=== PATIENT | female | born 2000 | race Two or more races ===

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

== ENCOUNTER 2020-12-19 06:03 | Emergency (ER) | payer OTHER ==
[2020-12-19 06:09] VITALS: BP 116/69; PULSE 72; RESP 20; TEMP 99.1
--- NOTE | 2020-12-19 06:21 | ED ---
Skin/Abscess/FB HPI - General Chief complaint: Skin/Abscess/Foreign Body Stated complaint: Allergic Reaction Time Seen by Provider: 12/19/20 06:09 Source: patient, family Mode of arrival: ambulatory Limitations: no limitations - History of Present Illness Initial comments: 20yo female prsenting for cc of bee sting. pt states she was stung at 10AM yesterday by a bee (she brought in what appears to be a yellow jacket). pt states that she has had pain since. she states she never noted a stinger. pt denies redness. pt denies rash, diarrhea, abdominal pain, tongue/lip swelling, wheezing. pt has no additional complaints aside from pain at the side of being stung, which is the right bottom foot. patient has no additional complaitns. appears well nontoxic on arrival. - Related Data Previous Rx's Medication Instructions Recorded diphenhydrAMINE & Zinc Cream 1 applic TOPICAL BID 3 Days #15 gm 12/19/20 [Benadryl Cream] Allergies Allergy/AdvReac Type Severity Reaction Status Date / Time No Known Allergies Allergy Verified 12/19/20 06:09 Review of Systems ROS Statement: Those systems with pertinent positive or pertinent negative responses have been documented in the HPI. ROS Other: All systems not noted in ROS Statement are negative. Past Medical History Past Medical History: No Reported History History of Any Multi-Drug Resistant Organisms: None Reported Past Surgical History: No Surgical Hx Reported Past Psychological History: No Psychological Hx Reported Smoking Status: Never smoker Past Alcohol Use History: None Reported Past Drug Use History: None Reported General Exam - General Exam Comments Initial Comments: General: The patient is awake and alert, in no distress Eye: +3 mm pupils are equal, round and reactive to light, extra-ocular movements are intact. No nystagmus. There is normal conjunctiva bilaterally. No signs of icterus. Ears, nose, mouth and throat: There are moist mucous membranes and no oral lesions.No lip or tongue swelling. Neck: The neck is supple, there is no tenderness or JVD. Cardiovascular: There is a regular rate and rhythm. No murmur, rub or gallop is appreciated. Respiratory: Lungs are clear to auscultation, respirations are non-labored, breath sounds are equal. No wheezes, stridor, rales, or rhonchi. Neurological: A&O x 3. CN II-XII intact grossly, There are no obvious motor or sensory deficits. Coordination appears grossly intact. Speech is normal. Skin: Skin is warm and dry and no rashes or lesions are noted- there is pa in to palpation pad of right foot but there is no redness, no stinger/foreign body noted. there is no rashes noted. Psychiatric: Cooperative. Limitations: no limitations Course Vital Signs 12/19/20 06:04 Temperature 99.1 F Pulse Rate 72 Respiratory 20 Rate Blood Pressure 116/69 O2 Sat by Pulse 98 Oximetry Medical Decision Making - Medical Decision Making pain at site of being stung. no findings on exam aside from pain. no apparent infection/reaction. recommend applying ice, bendaryl cream and return for any increasing redness/swelling. Disposition Clinical Impression: Bee sting Disposition: HOME SELF-CARE Condition: Good Instructions (If sedation given, give patient instructions): Insect Bite or Sting (ED) Additional Instructions: Please use medication as discussed. Please follow-up with family doctor in the next 2 days. Please return to emergency room if the symptoms increase or worsen or for any other concerns. Prescriptions: diphenhydrAMINE & Zinc Cream [Benadryl Cream] 1 applic TOPICAL BID 3 Days #15 gm Is patient prescribed a controlled substance at d/c from ED?: No Referrals: Husam Roman MD [Primary Care Provider] - 1-2 days Time of Disposition: 06:21
== END 2020-12-19 06:48 | disposition home or self-care (01) ==
LOC: EC 06:03
DX: T63.441A Toxic effect of venom of bees, accidental (unintentional), initial encounter (principal)
CPT/HCPCS: 99282

== ENCOUNTER → 2021-01-10 | Outpatient (CLI) | payer OTHER ==
[2021-01-10 11:34] LABS: Appearance,Urine Cloudy (Clear); Bilirubin,Urine Negative (Negative); Blood,Urine Negative (Negative); Color,Urine Yellow; Glucose,Urine (UA) Negative (Negative); Ketones,Urine Negative (Negative); Leukocyte Esterase,Urine Trace (Negative); Mucus,Urine Rare /hpf; Nitrite,Urine Negative (Negative); Protein,Urine Negative (Negative); RBC,Urine 1 /hpf (0-5); Specific Gravity,Urine 1.018 (1.001-1.035); Squamous Epithelial Cell,Urine 3 /hpf (0-4); Urobilinogen,Urine <2.0 mg/dL (<2.0); WBC,Urine 2 /hpf (0-5)
--- NOTE | 2021-01-10 12:27 | XR ---
EXAMINATION TYPE: XR chest 2V DATE OF EXAM: 01/10/2021 COMPARISON: None HISTORY: 20-year-old female shortness of breath, right axillary and rib pain. TECHNIQUE: Frontal and lateral views FINDINGS: The cardiomediastinal silhouette, aorta, and pulmonary vasculature are within normal limits. Lungs an d pleural spaces are clear. IMPRESSION: No acute cardiopulmonary process.
[2021-01-10 16:29] LABS: Basophils # (A) 0.05 X 10*3/uL (0.00-0.10); Eosinophils # (A) 0.12 X 10*3/uL (0.04-0.35); Eosinophils % (A) 2.3 %; HCT 42.4 % (37.2-46.3); HGB 14.1 g/dL (12.0-15.0); Lymphocytes # (A) 2.03 X 10*3/uL (0.90-5.00); Lymphocytes % (A) 39.1 %; MCH 28.9 pg (27.0-32.0); MCHC 33.3 g/dL (32.0-37.0); MCV 86.9 fL (80.0-97.0); Mean Platelet Volume 11.5 fL (9.5-12.2); Monocytes # (A) 0.37 X 10*3/uL (0.20-1.00); Monocytes % (A) 7.1 %; Neutrophils # (A) 2.61 X 10*3/uL (1.80-7.70); Neutrophils % (A) 50.3 %; Platelet Count 275 X 10*3/uL (140-440); RBC 4.88 X 10*6/uL (4.10-5.20); RDW 11.9 % (11.5-14.5); WBC 5.19 X 10*3/uL (4.50-10.00)
[2021-01-10 16:48] LABS: Ferritin 22.7 ng/mL (10.0-291.0)
[2021-01-10 16:58] LABS: Thyroid Peroxidase Antibodies <28.0 U/mL (0.0-60.0)
[2021-01-10 17:54] LABS: % Iron Saturation 25.59 (12.00-45.00); ALT 10 U/L (8-44); AST 19 U/L (13-35); Albumin/Globulin Ratio 1.88 (1.60-3.17); Alkaline Phosphatase 65 U/L (41-126); C Reactive Protein <0.4 mg/dL (0.0-0.8); Calcium 9.8 mg/dL (8.7-10.3); Carbon Dioxide 29.5 mmol/L (21.6-31.8); Chloride 103 mmol/L (96-109); Chol/HDL Ratio 3.21; Cholesterol 186 mg/dL (0-200); Creatine Kinase 79 U/L (26-186); Globulin 2.5 g/dL (1.6-3.3); Glucose 90 mg/dL (70-110); Iron 87 ug/dL (50-170); LDL Cholesterol,Calculated 116.6 mg/dL (0.0-131.0); Magnesium 2.1 mg/dL (1.5-2.4); Non-African American GFR(CKD) 106.1 (60.0-200.0); Phosphorus 4.7 mg/dL (2.4-5.1); Potassium 4.2 mmol/L (3.5-5.5); Sodium 141 mmol/L (135-145); Total Bilirubin 0.6 mg/dL (0.3-1.2); Total Iron Binding Capacity 340 ug/dL (228-460); Total Protein 7.2 g/dL (6.2-8.2)
[2021-01-10 20:04] LABS: Erythrocyte Sedimentation Rate 8 mm/Hr (0-20)
[2021-01-10 20:58] LABS: Folate, Serum 17.2 ng/mL
== END | disposition home or self-care (01) ==
LOC: LABWHC1 11:03
PROVIDERS: ATTEND Internal Medicine
DX: Z00.00 Encounter for general adult medical examination without abnormal findings (principal); E78.5 Hyperlipidemia, unspecified; E05.90 Thyrotoxicosis, unspecified without thyrotoxic crisis or storm; D64.9 Anemia, unspecified; M79.621 Pain in right upper arm; R07.81 Pleurodynia
CPT/HCPCS: 36415; 71046; 80053; 80061; 81001; 82306; 82550; 82607; 82728; 82746; 83540; 83550; 83735; 84100; 84439; 84443; 84466; 84481; 85025; 85652; 86140; 86376; 86800

== ENCOUNTER 2021-06-28 18:19 | Emergency (ER) | payer OTHER ==
[2021-06-28 19:47] VITALS: BP 106/76; PULSE 106; RESP 18; TEMP 101.6
[2021-06-28] MEDS ORDERED: ACETAMINOPHEN TAB 500 MG TAB PO STA (19:47)
--- NOTE | 2021-06-28 19:49 | ED ---
URI HPI - General Stated Complaint: coughing/dizzy Time Seen by Provider: 06/28/21 19:45 - History of Present Illness Initial Comments: Seen for ATP: 20 year-old female presents for cough, chest tightness, and headache. Symptoms started today. States that she also is having some dizziness. Reports fever, body aches, chills. Denies chance of . Has not been vaccinated for COVID or Flu. Denies nausea or vomiting. Has been eating and drinking well. - Related Data Previous Rx's Medication Instructions Recorded diphenhydrAMINE & Zinc Cream 1 applic TOPICAL BID 3 Days #15 gm 12/19/20 [Benadryl Cream] Ibuprofen [Motrin] 600 mg PO Q8HR PRN #30 tab 06/28/21 guaiFENesin-DM 600/30MG [Mucinex 1 each PO Q12HR #10 tab 06/28/21 Dm] Allergies Allergy/AdvReac Type Severity Reaction Status Date / Time No Known Allergies Allergy Verified 06/28/21 19:47 Review of Systems ROS Statement: Those systems with pertinent positive or pertinent negative responses have been documented in the HPI. ROS Other: All systems not noted in ROS Statement are negative. Past Medical History Past Medical History: No Reported History History of Any Multi-Drug Resistant Organisms: None Reported Past Surgical History: No Surgical Hx Reported Past Psychological History: No Psychological Hx Reported Smoking Status: Never smoker Past Alcohol Use History: None Reported Past Drug Use History: None Reported General Exam General appearance: alert, in no apparent distress ENT exam: Present: normal exam, normal oropharynx, mucous membranes moist Respiratory exam: Present: normal lung sounds bilaterally. Absent: respiratory distress, wheezes, rales, rhonchi, stridor Cardiovascular Exam: Present: regular rate, normal rhythm, normal heart sounds. Absent: systolic murmur, diastolic murmur, rubs, gallop, clicks GI/Abdominal exam: Present: soft, normal bowel sounds. Absent: distended, tenderness, guarding, rebound, rigid Neurological exam: Present: alert, oriented X3, CN II-XII intact Psychiatric exam: Present: normal affect, normal mood Skin exam: Present: warm, dry, intact, normal color. Absent: rash Course Vital Signs 06/28/21 06/28/21 19:44 21:05 Temperature 101.6 F H Pulse Rate 106 H Respiratory 18 18 Rate Blood Pressure 106/76 O2 Sat by Pulse 97 Oximetry Medical Decision Making - Medical Decision Making 20-year-old female patient presented for evaluation of cough, fever, body aches. Physical examination revealed clear equal lung sounds. She is in no respiratory distress. She was febrile upon arrival. Chest x-ray was negative. She did test positive for COVID-19. She is given prescriptions for ibuprofen and Mucinex DM. She will be discharged with instructions to increase fluids, rest. Follow-up with her primary care physician for recheck in 1-2 days. Return parameters were discussed in detail. She verbalizes understanding and agrees with this plan. My attending is Dr. Guzman. - Lab Data Lab Results 06/28/21 Range/Units 19:49 Coronavirus (PCR) Detected A (Not Detectd) - Radiology Data Radiology results: report reviewed, image reviewed Two-view x-ray of the chest is obtained. Report was reviewed in its entirety. Impression by Dr. Rome shows normal chest. No change. Disposition Clinical Impression: COVID-19 Disposition: HOME SELF-CARE Condition: Good Instructions (If sedation given, give patient instructions): Coronavirus Disease 2019 (COVID-19) Additional Instructions: Tips to help you feel better: -Maintain adequate fluid intake - especially water. -Rest, you are healing your body will require extra sleep. -Eat even if you do not feel like it - broth, jello, toast are fine if you cannot eat full meals. -Take tylenol and motrin alternating (if you have no allergies or have not been instructed to avoid these medications) to help with body aches and fevers. -Obtain over the counter vitamin C, zinc, and vitamin D3. -Take medications as prescribed. Follow-up with your primary care physician for recheck in 1-2 days. Return for any new, worsening, or concerning symptoms. Prescriptions: Ibuprofen [Motrin] 600 mg PO Q8HR PRN #30 tab PRN Reason: Pain guaiFENesin-DM 600/30MG [Mucinex Dm] 1 each PO Q12HR #10 tab Is patient prescribed a controlled substance at d/c from ED?: No Referrals: Husam Roman MD [Primary Care Provider] - 1-2 days Time of Disposition: 21:03
--- NOTE | 2021-06-28 20:06 | XR ---
EXAMINATION TYPE: XR chest 2V DATE OF EXAM: 06/28/2021 COMPARISON: 01/10/2021 HISTORY: Chest pain TECHNIQUE: FINDINGS: Heart and mediastinum are normal. Lungs are clear. Diaphragm is normal. Bony thorax is inta ct. IMPRESSION: Normal chest. No change.
== END 2021-06-28 21:07 | disposition home or self-care (01) ==
LOC: EC 18:19
DX: U07.1 COVID-19 (principal)
CPT/HCPCS: 71046; 87635; 99285

== ENCOUNTER 2021-07-11 17:31 | Emergency (ER) | payer SELFPAY ==
[2021-07-11 18:19] VITALS: BP 121/81; PULSE 78; RESP 18; TEMP 97.3
--- NOTE | 2021-07-11 20:04 | ED ---
General Adult HPI - General Chief complaint: Weakness Stated complaint: Covid test Source: patient, EMS Mode of arrival: EMS - History of Present Illness Initial comments: Patient is a pleasant 20yo F who has had 14days of COVID 19 symptoms, tested +14 days ago reported she came to the ER today feeling better but wanted repeat testing because she's been grunting from her family - Related Data Previous Rx's Medication Instructions Recorded diphenhydrAMINE & Zinc Cream 1 applic TOPICAL BID 3 Days #15 gm 12/19/20 [Benadryl Cream] Ibuprofen [Motrin] 600 mg PO Q8HR PRN #30 tab 06/28/21 guaiFENesin-DM 600/30MG [Mucinex 1 each PO Q12HR #10 tab 06/28/21 Dm] Allergies Allergy/AdvReac Type Severity Reaction Status Date / Time No Known Allergies Allergy Verified 06/28/21 19:47 Review of Systems ROS Statement: Those systems with pertinent positive or pertinent negative responses have been documented in the HPI. ROS Other: All systems not noted in ROS Statement are negative. Past Medical History Past Medical History: No Reported History History of Any Multi-Drug Resistant Organisms: None Reported Past Surgical History: No Surgical Hx Reported Past Psychological History: No Psychological Hx Reported Smoking Status: Never smoker Past Alcohol Use History: None Reported Past Drug Use History: None Reported General Exam - General Exam Comments Initial Comments: Physical Exam GENERAL: Patient is well-developed and well-nourished. Patient is nontoxic and well-hydrated and is in no distress. HENT: Normocephalic, Atraumatic. EYES: PERRL, EOMI PULMONARY: Unlabored respirations. CARDIOVASCULAR: RRR Warm and well perfused extremities ABDOMEN: Non-distended SKIN: No rashes or bruising : Deferred NEUROLOGIC: Alert and oriented Normal speech Normal gait MUSCULOSKELETAL: Moving all extremities with no apparent injury Course Vital Signs 07/11/21 18:15 Temperature 97.3 F L Pulse Rate 78 Respiratory 18 Rate Blood Pressure 121/81 O2 Sat by Pulse 100 Oximetry Medical Decision Making - Medical Decision Making She was seen and evaluated history is obtained from patient, she will 14 days of COVID-19, symptoms are improving she is feeling much better now wanted a repeat test due to currently quarantining. Repeat test was ordered through triage. It is still positive. I advised the patient that she states she is to return in 2 weeks out from onset of symptoms she is asymptomatic now she can in her quarantine. No need for additional testing - Lab Data Lab Results 07/11/21 Range/Units 18:16 Coronavirus (PCR) Detected A (Not Detectd) Disposition Clinical Impression: COVID-19 Disposition: HOME SELF-CARE Condition: Stable Instructions (If sedation given, give patient instructions): Coronavirus Disease 2019 (COVID-19) Is patient prescribed a controlled substance at d/c from ED?: No Referrals: Husam Roman MD [Primary Care Provider] - 1-2 days
== END 2021-07-11 20:10 | disposition home or self-care (01) ==
LOC: EC 17:31
DX: U07.1 COVID-19 (principal)
CPT/HCPCS: 87635; 99283

== ENCOUNTER 2021-08-06 13:01 | Emergency (ER) | payer OTHER ==
[2021-08-06 13:15] VITALS: BP 94/68; RESP 16; TEMP 97.9
[2021-08-06 13:28] VITALS: PULSE 78
--- NOTE | 2021-08-06 14:54 | ED ---
General Adult HPI - General Chief complaint: Weakness Stated complaint: Dizziness, tired, weak Time Seen by Provider: 08/06/21 13:17 Source: patient, RN notes reviewed Mode of arrival: ambulatory Limitations: no limitations - History of Present Illness Initial comments: 20-year-old female presents emergency Department chief complaint of not feeling well. Patient has been recently exposed to COVID-19. Patient did have some palpitations few days ago so she thought she should be tested. Patient has had no major cough cold like symptoms otherwise denies any chest pain headache blurred vision. Weakness. - Related Data Home Medications Medication Instructions Recorded Confirmed Ascorbic Acid [Vitamin C] 500 mg PO DAILY 08/06/21 08/06/21 Calcium Carbonate [Calcium] 600 mg PO DAILY 08/06/21 08/06/21 Cholecalciferol [Vitamin D3 (25 25 mcg PO DAILY 08/06/21 08/06/21 Mcg = 1000 Iu)] Allergies Allergy/AdvReac Type Severity Reaction Status Date / Time No Known Allergies Allergy Verified 08/06/21 14:32 Review of Systems ROS Statement: Those systems with pertinent positive or pertinent negative responses have been documented in the HPI. ROS Other: All systems not noted in ROS Statement are negative. Past Medical History Past Medical History: No Reported History History of Any Multi-Drug Resistant Organisms: None Reported Past Surgical History: No Surgical Hx Reported Past Psychological History: No Psychological Hx Reported Smoking Status: Never smoker Past Alcohol Use History: None Reported Past Drug Use History: None Reported General Exam Limitations: no limitations General appearance: alert, in no apparent distress Head exam: Present: atraumatic, normocephalic, normal inspection Eye exam: Present: normal appearance, PERRL, EOMI. Absent: scleral icterus, conjunctival injection, periorbital swelling ENT exam: Present: normal exam, normal oropharynx, mucous membranes moist Neck exam: Present: normal inspection, full ROM. Absent: tenderness, meningismus, lymphadenopathy Respiratory exam: Present: normal lung sounds bilaterally. Absent: respiratory distress, wheezes, rales, rhonchi, stridor Cardiovascular Exam: Present: regular rate, normal rhythm, normal heart sounds. Absent: systolic murmur, diastolic murmur, rubs, gallop, clicks Course Vital Signs 08/06/21 08/06/21 13:12 13:26 Temperature 97.9 F Pulse Rate 90 Pulse Rate [ 78 Apical] Respiratory 16 Rate Blood Pressure 94/68 O2 Sat by Pulse 96 Oximetry Medical Decision Making - Medical Decision Making Patient had negative COVID-19 test. Patient discharged in stable condition return parameters discussed. - Lab Data Lab Results 08/06/21 Range/Units 13:32 Coronavirus (PCR) Not Detected (Not Detectd) Disposition Clinical Impression: Exposure to COVID-19 virus, Encounter for laboratory testing for COVID-19 virus Disposition: HOME SELF-CARE Condition: Stable Additional Instructions: Please return to the Emergency Department if symptoms worsen or any other concerns. Is patient prescribed a controlled substance at d/c from ED?: No Referrals: Husam Roman MD [Primary Care Provider] - 1-2 days Time of Disposition: 14:53
== END 2021-08-06 15:31 | disposition home or self-care (01) ==
LOC: EC 13:01
DX: Z20.822 Contact with and (suspected) exposure to COVID-19 (principal)
CPT/HCPCS: 87635; 99282

== ENCOUNTER 2022-06-15 14:00 | Emergency (ER) | payer BC ==
[2022-06-15 14:05] VITALS: RESP 18; TEMP 98.6
--- NOTE | 2022-06-15 16:13 | XR ---
EXAMINATION TYPE: XR chest 2V DATE OF EXAM: 06/15/2022 COMPARISON: Prior chest x-ray June 28, 2021 HISTORY: Cough. TECHNIQUE: Frontal and lateral views of the chest are obtained. FINDINGS: There is no focal air space opacity, pleural effusion, or pneumothorax seen. The cardiac silhouette size is within normal limits. The osseous structures are intact. IMPRESSION: No suspicious acute airspace opacities seen. No significant change from prior.
--- NOTE | 2022-06-15 17:05 | ED ---
URI HPI - General Chief Complaint: Upper Respiratory Infection Stated Complaint: Cough,KATERIN Time Seen by Provider: 06/15/22 15:20 Source: patient Mode of arrival: ambulatory Limitations: no limitations - History of Present Illness Initial Comments: Patient has a cough and sore throat. She has no belly or back pain. She has no weakness. She has no lightheadedness. She tolerates oral intake. - Related Data Home Medications Medication Instructions Recorded Confirmed Ascorbic Acid [Vitamin C] 500 mg PO DAILY 08/06/21 08/06/21 Calcium Carbonate [Calcium] 600 mg PO DAILY 08/06/21 08/06/21 Cholecalciferol [Vitamin D3 (25 25 mcg PO DAILY 08/06/21 08/06/21 Mcg = 1000 Iu)] Previous Rx's Medication Instructions Recorded Azithromycin [Zithromax Z Pack] 1 tab PO DIRECTED #6 tab 06/15/22 Allergies Allergy/AdvReac Type Severity Reaction Status Date / Time No Known Allergies Allergy Verified 06/15/22 14:05 Review of Systems ROS Statement: Those systems with pertinent positive or pertinent negative responses have been documented in the HPI. ROS Other: All systems not noted in ROS Statement are negative. Past Medical History Past Medical History: No Reported History History of Any Multi-Drug Resistant Organisms: None Reported Past Surgical History: No Surgical Hx Reported Past Psychological History: No Psychological Hx Reported Smoking Status: Never smoker Past Alcohol Use History: None Reported Past Drug Use History: None Reported General Exam Limitations: no limitations General appearance: alert, in no apparent distress Head exam: Present: atraumatic, normocephalic, normal inspection Eye exam: Present: normal appearance, PERRL, EOMI. Absent: scleral icterus, conjunctival injection, periorbital swelling ENT exam: Present: normal exam, mucous membranes moist Neck exam: Present: normal inspection. Absent: tenderness, meningismus, lymphadenopathy Respiratory exam: Present: normal lung sounds bilaterally. Absent: respiratory distress, wheezes, rales, rhonchi, stridor Cardiovascular Exam: Present: regular rate, normal rhythm, normal heart sounds. Absent: systolic murmur, diastolic murmur, rubs, gallop, clicks GI/Abdominal exam: Present: soft, normal bowel sounds. Absent: distended, tenderness, guarding, rebound, rigid Extremities exam: Present: normal inspection, full ROM, normal capillary refill. Absent: tenderness, pedal edema, joint swelling, calf tenderness Back exam: Present: normal inspection Neurological exam: Present: alert, oriented X3, CN II-XII intact Psychiatric exam: Present: normal affect, normal mood Skin exam: Present: warm, dry, intact, normal color. Absent: rash Course Vital Signs 06/15/22 14:03 Temperature 98.6 F Pulse Rate 100 Respiratory 18 Rate Blood Pressure 102/59 O2 Sat by Pulse 99 Oximetry Medical Decision Making - Medical Decision Making Patient has a cough. Exam is unremarkable. Patient is feeling better in the emerge department. She is stable for discharge. - Lab Data Lab Results 06/15/22 06/15/22 Range/Units 14:14 14:14 Coronavirus (PCR) Not Detected (Not Detectd) Influenza Type A RNA Not Detected (Not Detectd) Influenza Type B (PCR) Not Detected (Not Detectd) Disposition Clinical Impression: Pharyngitis Disposition: HOME SELF-CARE Condition: Good Instructions (If sedation given, give patient instructions): Upper Respiratory Infection (ED) Prescriptions: Azithromycin [Zithromax Z Pack] 1 tab PO DIRECTED #6 tab Is patient prescribed a controlled substance at d/c from ED?: No Referrals: Husam Roman MD [Primary Care Provider] - 1-2 days
[2022-06-15] MEDS ORDERED: MULTIVITAMINS, THERA LIQUID 237 ML BOTTLE PO SCH (17:15)
[2022-06-15 17:43] VITALS: BP 111/62; PULSE 103
== END 2022-06-15 17:42 | disposition home or self-care (01) ==
LOC: EC 14:00
DX: J02.9 Acute pharyngitis, unspecified (principal); Z20.822 Contact with and (suspected) exposure to COVID-19
CPT/HCPCS: 71046; 87502; 87635; 99285

== ENCOUNTER 2023-01-28 21:05 | Emergency (ER) | payer BC, MEDICARE, OTHER ==
[2023-01-28] MEDS ORDERED: predniSONE 20 MG TAB PO STA (22:08)
[2023-01-28] MEDS ORDERED: MECLIZINE 12.5 MG TAB PO STA (22:08)
--- NOTE | 2023-01-28 22:09 | ED ---
Dizziness HPI - General Chief Complaint: Dizziness Stated Complaint: Ear ache, cough, sore throat Time Seen by Provider: 01/28/23 21:59 Source: patient, RN notes reviewed Mode of arrival: ambulatory Limitations: no limitations - History of Present Illness Initial Comments: Patient is a 22-year-old female presenting to the emergency room with complaints of ear pain right left thumb worse along with generalized unwell feeling, sore throat and dizziness. She reports that symptoms have slowly occurred over the last 2 weeks with dizziness persisting the longus and her ear pain just beginning over the last 48 hours. She denies any chest pain, shortness of breath, abdominal pain, nausea, vomiting, diarrhea, difficulty in swallowing, headache, fevers or chills. She denies any known viral exposure or exposure to strep throat. Overall she is healthy and does not take any medications on a regular basis. - Related Data Home Medications Medication Instructions Recorded Confirmed Ascorbic Acid [Vitamin C] 500 mg PO DAILY 08/06/21 08/06/21 Calcium Carbonate [Calcium] 600 mg PO DAILY 08/06/21 08/06/21 Cholecalciferol [Vitamin D3 (25 25 mcg PO DAILY 08/06/21 08/06/21 Mcg = 1000 Iu)] Previous Rx's Medication Instructions Recorded Azithromycin [Zithromax Z Pack] 1 tab PO DIRECTED #6 tab 06/15/22 Amoxicillin 875 mg PO Q12HR 10 Days #20 tablet 01/28/23 Meclizine [Antivert] 25 mg PO TID PRN 7 Days #21 tab 01/28/23 Allergies Allergy/AdvReac Type Severity Reaction Status Date / Time No Known Allergies Allergy Verified 01/28/23 21:43 Review of Systems ROS Statement: Those systems with pertinent positive or pertinent negative responses have been documented in the HPI. ROS Other: All systems not noted in ROS Statement are negative. Past Medical History Past Medical History: No Reported History History of Any Multi-Drug Resistant Organisms: None Reported Past Surgical History: No Surgical Hx Reported Past Psychological History: No Psychological Hx Reported Smoking Status: Never smoker Past Alcohol Use History: None Reported Past Drug Use History: None Reported General Exam Limitations: no limitations General appearance: alert, in no apparent distress Head exam: Present: atraumatic, normocephalic, normal inspection Eye exam: Present: normal appearance, PERRL, EOMI. Absent: scleral icterus, conjunctival injection, nystagmus, periorbital swelling ENT exam: Present: mucous membranes moist Expanded Ear exam: Present: normal external inspection TM/Canal exam: Erythema: Right TM, Bulging: Right TM, Effusion: Right TM Mouth exam: Present: normal external inspection Teeth exam: Present: normal inspection Throat exam: negative: tonsillar erythema, tonsillomegaly, tonsillar exudate Neck exam: Present: normal inspection, lymphadenopathy (Shotty). Absent: tenderness Respiratory exam: Present: normal lung sounds bilaterally. Absent: respiratory distress, wheezes, rales, rhonchi, stridor Cardiovascular Exam: Present: regular rate, normal rhythm, normal heart sounds. Absent: systolic murmur, diastolic murmur, rubs, gallop, clicks GI/Abdominal exam: Present: soft, normal bowel sounds. Absent: distended, tenderness, guarding, rebound, rigid Extremities exam: Present: normal inspection. Absent: pedal edema, joint swelling Back exam: Present: normal inspection Neurological exam: Present: alert, oriented X3, CN II-XII intact Psychiatric exam: Present: normal affect, normal mood Skin exam: Present: warm, dry, intact, normal color. Absent: rash Course Vital Signs 01/28/23 01/29/23 21:39 00:06 Temperature 98.6 F 98.0 F Pulse Rate 81 85 Respiratory 20 18 Rate Blood Pressure 98/67 97/74 O2 Sat by Pulse 98 96 Oximetry Medical Decision Making - Medical Decision Making Was pt. sent in by a medical professional or institution ([facility]HNA[facility] Rubalcava, TUBE TRAILER FILLER, urgent care, hospital, or fci...) When possible be specific @ -No Did you speak to anyone other than the patient for history (EMS, parent, family, police, friend...)? What history was obtained from this source @ -No Did you review nursing and triage notes (agree or disagree)? Why? @ -I reviewed and agree with nursing and triage notes Were old charts reviewed (outside hosp., previous admission, EMS record, old EKG, old radiological studies, urgent care reports/EKG's, fci records)? Report findings @ -No old charts were reviewed Differential Diagnosis (chest pain, altered mental status, abdominal pain women, abdominal pain men, vaginal bleeding, weakness, fever, dyspnea, syncope, headache, dizziness, GI bleed, back pain, seizure, CVA, palpatations, mental health, musculoskeletal)? @ -Differential Upper respiratory symptoms: Pneumonia, viral URI, bronchitis, otitis, sinusitis, streptococcal pharyngitis, mononucleosis, peritonsillar Abscess, retropharyngeal Abscess, epiglottitis, this is not meant to be an all-inclusive list. EKG interpreted by me (3pts min.). @ -None done X-rays interpreted by me (1pt min.). @ -None done CT interpreted by me (1pt min.). @ -None done U/S interpreted by me (1pt. min.). @ -None done What testing was considered but not performed or refused? (CT, X-rays, U/S, labs)? Why? @ -None What meds were considered but not given or refused? Why? @ -None Did you discuss the management of the patient with other professionals (professionals i.e. , PA, TUBE TRAILER FILLER, lab, RT, psych nurse, social problems specialist, algebraist, teacher, ordnance officer, bottle caser)? Give summary @ -No Was smoking cessation discussed for >3mins.? @ -No Was critical care preformed (if so, how long)? @ -No Were there social determinants of health that impacted care today? How? (Homelessness, low income, unemployed, alcoholism, drug addiction, transportation, low edu. Level, literacy, decrease access to med. care, long term, rehab)? @ -No Was there de-escalation of care discussed even if they declined (Discuss DNR or withdrawal of care, Hospice)? DNR status @ -No What co-morbidities impacted this encounter? (DM, HTN, Smoking, COPD, CAD, Cancer, CVA, ARF, Chemo, Hep., AIDS, mental health diagnosis, sleep apnea, morbid obesity)? @ -None Was patient admitted / discharged? Hospital course, mention meds given and route, prescriptions, significant lab abnormalities, going to OR and other pertinent info. @ -22-year-old female presenting to the emergency room with complaint of sore throat, bilateral ear pain right wrist and left and dizziness ongoing for 2 weeks. Denies recent exposure to any viral illnesses or strep throat. Will obtain viral swabs for COVID, RSV and influenza. Will check for strep throat as well. No indication for serum studies or diagnostic imaging. Will give oral steroid to help with pain and swelling along with meclizine for dizziness. Symptoms and improved with prednisone and meclizine but mild dizziness persists. Far swabs negative for covert, RSV and influenza. Strep negative. Newly found diagnosis of strep from nephew during ER visit. Due to duration of symptoms and known strep exposure along with otitis media and sinusitis will treat with antibiotics along with Flonase. Will give both medications at this time and continue antibiotics outpatient and meclizine as needed. Questions and concerns answered. Return parameters the emergency room discussed. Will discharge home in stable condition on meclizine, Flonase and Augmentin to treat acute otitis media to the right ear and sinusitis advising utilization of [id number] Tylenol or Motrin as needed for pain and follow-up with primary care provider. Undiagnosed new problem with uncertain prognosis? @ -No Drug Therapy requiring intensive monitoring for toxicity (Heparin, Nitro, Insulin, Cardizem)? @ -No Were any procedures done? @ -No Diagnosis/symptom? @ -Right otitis media Acute, or Chronic, or Acute on Chronic? @ -Acute Uncomplicated (without systemic symptoms) or Complicated (systemic symptoms)? @ -Uncomplicated Side effects of treatment? @ -No Exacerbation, Progression, or Severe Exacerbation? @ -No Poses a threat to life or bodily function? How? (Chest pain, [place], [place], pneumonia, PE, COPD, DKA, ARF, appy, cholecystitis, CVA, Diverticulitis, Homicidal, Suicidal, threat to staff... and all critical care pts) @ -No Diagnosis/symptom? @ -Sinusitis Acute, or Chronic, or Acute on Chronic? @ -Acute Uncomplicated (without systemic symptoms) or Complicated (systemic symptoms)? @ -Uncomplicated Side effects of treatment? @ -none Exacerbation, Progression, or Severe Exacerbation] @ -no Poses a threat to life or bodily function? @ -no Case discussed with Dr. Guzman - Lab Data Lab Results 01/28/23 01/28/23 Range/Units 22:19 22:19 Influenza Type A (PCR) Not Detected (Not Detectd) Influenza Type B (PCR) Not Detected (Not Detectd) RSV (PCR) Not Detected (Not Detectd) SARS-CoV-2 (PCR) Not Detected (Not Detectd) Group A Strep (PCR) NOT DETECTED (Not Detectd) Disposition Clinical Impression: Otitis media of right ear, Sinusitis Disposition: HOME SELF-CARE Condition: Stable Instructions (If sedation given, give patient instructions): Sinusitis (ED), Ear Infection (ED), Dizziness (ED) Additional Instructions: Complete course of antibiotic as prescribed. Utilize Flonase daily while taking antibiotic. Utilize meclizine as needed for dizziness. Stay well hydrated. Please follow-up with your primary care provider. Please return to the Emergency Department if symptoms worsen or any other concerns. Prescriptions: Amoxicillin 875 mg PO Q12HR 10 Days #20 tablet Meclizine [Antivert] 25 mg PO TID PRN 7 Days #21 tab PRN Reason: Vertigo Is patient prescribed a controlled substance at d/c from ED?: No Referrals: Husam Roman MD [Primary Care Provider] - 1-2 days Time of Disposition: 23:27
[2023-01-28] MEDS ORDERED: AMOXIC-POT CLAV 875-125MG 1 EACH TAB PO STA (23:14)
[2023-01-28] MEDS ORDERED: FLUTICASONE 50MCG/SPRAY NASAL 16GM EA NOSTRIL PRN (23:14)
[2023-01-29 00:07] VITALS: BP 97/74; PULSE 85; RESP 18; TEMP 98
== END 2023-01-29 00:07 | disposition home or self-care (01) ==
LOC: EC 21:05
DX: H66.91 Otitis media, unspecified, right ear (principal); J32.9 Chronic sinusitis, unspecified; Z20.822 Contact with and (suspected) exposure to COVID-19
CPT/HCPCS: 87651; 87636; 99284; J7512

== ENCOUNTER 2024-08-15 18:18 | Emergency (ER) | payer OTHER ==
[2024-08-15 18:27] VITALS: RESP 16; TEMP 97.8
--- NOTE | 2024-08-15 19:32 | ED ---
General Adult HPI - General Chief complaint: Headache Stated complaint: fever, throat pain Time Seen by Provider: 08/15/24 18:48 Source: patient Mode of arrival: ambulatory Limitations: no limitations - History of Present Illness Initial comments: 23-year-old female presenting with chief complaint of fever. Patient is also complaining of headache, sore throat, cough, congestion, body aches. Has been ongoing for 3 days. She is taking DayQuil and Tylenol, last took medication yesterday. No chest pain or difficulty breathing. No nausea vomiting or ab dominal pain. No difficulty swallowing. - Related Data Home Medications Medication Instructions Recorded Confirmed Ascorbic Acid [Vitamin C] 500 mg PO DAILY 08/06/21 08/06/21 Calcium Carbonate [Calcium] 600 mg PO DAILY 08/06/21 08/06/21 Cholecalciferol [Vitamin D3 (25 25 mcg PO DAILY 08/06/21 08/06/21 Mcg = 1000 Iu)] Previous Rx's Medication Instructions Recorded Azithromycin [Zithromax Z Pack] 1 tab PO DIRECTED #6 tab 06/15/22 Amoxicillin 875 mg PO Q12HR 10 Days #20 tablet 01/28/23 Meclizine [Antivert] 25 mg PO TID PRN 7 Days #21 tab 01/28/23 Allergies Allergy/AdvReac Type Severity Reaction Status Date / Time No Known Allergies Allergy Verified 08/15/24 18:27 Review of Systems ROS Statement: Those systems with pertinent positive or pertinent negative responses have been documented in the HPI. ROS Other: All systems not noted in ROS Statement are negative. Past Medical History Past Medical History: No Reported History History of Any Multi-Drug Resistant Organisms: None Reported Past Surgical History: No Surgical Hx Reported Past Psychological History: No Psychological Hx Reported Smoking Status: Never smoker Past Alcohol Use History: None Reported Past Drug Use History: None Reported General Exam Limitations: no limitations General appearance: alert, in no apparent distress Head exam: Present: atraumatic, normocephalic, normal inspection Eye exam: Present: normal appearance, EOMI ENT exam: Present: normal exam, normal oropharynx, mucous membranes moist Neck exam: Present: normal inspection. Absent: meningismus Respiratory exam: Present: normal lung sounds bilaterally. Absent: respiratory distress, wheezes, rales, rhonchi, stridor Cardiovascular Exam: Present: regular rate, normal rhythm, normal heart sounds. Absent: systolic murmur, diastolic murmur, rubs, gallop, clicks Neurological exam: Present: alert, oriented X3 Psychiatric exam: Present: normal affect, normal mood Skin exam: Present: warm, dry Course Vital Signs 08/15/24 18:25 Temperature 97.8 F Pulse Rate 95 Respiratory 16 Rate Blood Pressure 95/64 O2 Sat by Pulse 100 Oximetry Medical Decision Making - Medical Decision Making 23-year-old female presenting with chief complaint of fever, sore throat, headache. History and physical examination are conducted. Heart and lungs are clear to auscultation. Normal HEENT exam. Patient is negative for group A strep. She refuses COVID and flu testing. She refuses chest x-ray. Educated on today's findings. Follow-up with PCP. Report back to ER with any new or worsening symptoms. Discussed return parameters and answered all questions. Patient conveyed verbal understanding and agreed to the plan. My attending is Dr. Pedraza Was pt. sent in by a medical professional or institution (, PA, ENGINEER REMOTE CONTROL DIESEL, urgent care, hospital, or retirement...) When possible be specific @ -No Did you speak to anyone other than the patient for history (EMS, parent, family, police, friend...)? What history was obtained from this source @ -No Did you review nursing and triage notes (agree or disagree)? Why? @ -I reviewed and agree with nursing and triage notes Were old charts reviewed (outside hosp., previous admission, EMS record, old EKG, old radiological studies, urgent care reports/EKG's, retirement records)? Report findings @ -No old charts were reviewed Differential Diagnosis (chest pain, altered mental status, abdominal pain women, abdominal pain men, vaginal bleeding, weakness, fever, dyspnea, syncope, headache, dizziness, GI bleed, back pain, seizure, CVA, palpatations, mental health, musculoskeletal)? @ -Differential includes group A strep, COVID, influenza, RSV, peritonsillar abscess, this is not an all-inclusive list EKG interpreted by me (3pts min.). @ -As above X-rays interpreted by me (1pt min.). @ -None done CT interpreted by me (1pt min.). @ -None done U/S interpreted by me (1pt. min.). @ -None done What testing was considered but not performed or refused? (CT, X-rays, U/S, labs)? Why? @ -Patient refused viral swabs and chest x-ray What meds were considered but not given or refused? Why? @ -None Did you discuss the management of the patient with other professionals (professionals i.e. , PA, ENGINEER REMOTE CONTR[employer] DIESEL, lab, RT, psych nurse, social media analyst, stage director, teacher, audit officer, piano case and bench assembler)? Give summary @ -No Was smoking cessation discussed for >3mins.? @ -No Was critical care preformed (if so, how long)? @ -No Were there social determinants of health that impacted care today? How? (Homelessness, low income, unemployed, alcoholism, drug addiction, transportation, low edu. Level, literacy, decrease access to med. care, [facility], rehab)? @ -No Was there de-escalation of care discussed even if they declined (Discuss DNR or withdrawal of care, Hospice)? DNR status @ -No What co-morbidities impacted this encounter? (DM, HTN, Smoking, COPD, CAD, Cancer, CVA, ARF, Chemo, Hep., AIDS, mental health diagnosis, sleep apnea, morbid obesity)? @ -None Was patient admitted / discharged? Hospital course, mention meds given and route, prescriptions, significant lab abnormalities, going to OR and other pertinent info. @ -Discharge, see above for details Undiagnosed new problem with uncertain prognosis? @ -No Drug Therapy requiring intensive monitoring for toxicity (Heparin, Nitro, Insulin, Cardizem)? @ -No Were any procedures done? @ -No Diagnosis/symptom? @ -Pharyngitis Acute, or Chronic, or Acute on Chronic? @ -Acute Uncomplicated (without systemic symptoms) or Complicated (systemic symptoms)? @ -Uncomplicated Side effects of treatment? @ -No Exacerbation, Progression, or Severe Exacerbation? @ -No Poses a threat to life or bodily function? How? (Chest pain, [place], [place], pneumonia, PE, COPD, DKA, ARF, appy, cholecystitis, CVA, Diverticulitis, Homicidal, Suicidal, threat to staff... and all critical care pts) @ -Low likelihood - Lab Data Lab Results 08/15/24 Range/Units 20:05 Group A Strep (PCR) NOT DETECTED (Not Detectd) Disposition Clinical Impression: Pharyngitis Disposition: HOME SELF-CARE Condition: Good Instructions (If sedation given, give patient instructions): Pharyngitis (ED) Additional Instructions: Follow-up with PCP. Report back to ER with any new or worsening symptoms. Take Motrin and Tylenol as needed for pain control Is patient prescribed a controlled substance at d/c from ED?: No Referrals: Husam Roman MD [Primary Care Provider] - 1-2 days Time of Disposition: 20:44
[2024-08-15] MEDS: ACETAMINOPHEN TAB 325 MG TAB PO STA (20:06)
[2024-08-15] MEDS: IBUPROFEN 400 MG TAB PO STA (20:07)
[2024-08-15 21:08] VITALS: BP 93/58; PULSE 66
== END 2024-08-15 21:07 | disposition home or self-care (01) ==
LOC: EC 18:18
DX: J02.9 Acute pharyngitis, unspecified (principal)
CPT/HCPCS: 87651; 99284

== ENCOUNTER 2024-08-20 19:33 | Emergency (ER) | payer OTHER ==
[2024-08-20 19:51] VITALS: PULSE 87; RESP 18; TEMP 98.6
--- NOTE | 2024-08-20 20:27 | ED ---
Dizziness HPI - General Source: patient Mode of arrival: wheelchair <Jose J Mooney - Last Filed: 08/20/24 20:26> <Sonya Rodgers - Last Filed: 08/21/24 00:24> - General Chief Complaint: Dizziness Stated Complaint: Dizziness Time Seen by Provider: 08/20/24 20:26 - History of Present Illness Initial Comments: 23-year-old female presenting with chief complaint of dizziness. States it has been ongoing for about a week. She admits to slight headache which feels like tightness around her head and down her neck. Denies . (Jose J Mooney) Previously well 23-year-old female presenting today for dizziness. Patient states has been ongoing for weeks and she is diagnosed with COVID-19. She states that dizziness comes and goes, is triggered upon standing and laying down moments. She states that she drank some orange juice that her mother gave her earlier today which improved the dizziness. She endorsed a mild headache, denies any changes in vision, numbness, focal weakness, slurred speech. She denies chest pain, hemoptysis or difficulty in breathing. Endorses a nonproductive cough. Denies abdominal pain, nausea, vomiting, diarrhea, melena, hematochezia, hematuria, dysuria. Denies history of sudden cardiac . (Sonya Rodgers) - Related Data Home Medications Medication Instructions Recorded Confirmed Ascorbic Acid [Vitamin C] 500 mg PO DAILY 08/06/21 08/06/21 Calcium Carbonate [Calcium] 600 mg PO DAILY 08/06/21 08/06/21 Cholecalciferol [Vitamin D3 (25 25 mcg PO DAILY 08/06/21 08/06/21 Mcg = 1000 Iu)] Previous Rx's Medication Instructions Recorded Azithromycin [Zithromax Z Pack] 1 tab PO DIRECTED #6 tab 06/15/22 Amoxicillin 875 mg PO Q12HR 10 Days #20 tablet 01/28/23 Meclizine [Antivert] 25 mg PO TID PRN 7 Days #21 tab 01/28/23 Meclizine [Antivert] 25 mg PO TID #20 tab 08/21/24 Allergies Allergy/AdvReac Type Severity Reaction Status Date / Time No Known Allergies Allergy Verified 08/20/24 19:51 Review of Systems ROS Other: All systems not noted in ROS Statement are negative. <Jose J Mooney - Last Filed: 08/20/24 20:26> ROS Other: All systems not noted in ROS Statement are negative. <Sonya Rodgers - Last Filed: 08/21/24 00:24> ROS Statement: Those systems with pertinent positive or pertinent negative responses have been documented in the HPI. Past Medical History Past Medical History: No Reported History History of Any Multi-Drug Resistant Organisms: None Reported Past Surgical History: No Surgical Hx Reported Past Psychological History: No Psychological Hx Reported Smoking Status: Never smoker Past Alcohol Use History: None Reported Past Drug Use History: None Reported <Jose J Mooney - Last Filed: 08/20/24 20:26> General Exam <Jose J Mooney - Last Filed: 08/20/24 20:26> <Sonya Rodgers - Last Filed: 08/21/24 00:24> - General Exam Comments Initial Comments: Visual Physical Exam Vital signs reviewed General: Well-appearing, nontoxic, no acute distress. Head: Normocephalic, atraumatic Eyes: PERRLA, EOMI ENT: Airway patent Chest: Nonlabored breathing Skin: No visual rash, normal skin tone Neuro: Alert and oriented 3 Musculoskeletal: No gross abnormalities (Jose J Mooney) PE: CONSTITUTIONAL: No apparent distress, well appearing SKIN: Warm, dry, no jaundice, hives or petechiae EYES: Pupils are equally round, extraocular movements intact without nystagmus, clear conjunctiva, non-icteric sclera HENT: Normocephalic, atraumatic, moist mucus membranes, oropharynx clear without exudates, tympanic membranes are pearly jon, no erythema or bulging TM NECK: , Full range of motion, normal appearance PULMONARY: Clear to auscultation without wheezes, rhonchi, or rales, normal excursion, no accessory muscle use and no stridor CARDIOVASCULAR: Regular rate, rhythm, normal S1 and S2. No appreciated murmurs, rubs or gallops. Extremities are well-perfused no lower extremity edema GASTROINTESTINAL: Soft, active bowel sounds throughout, non-tender, non- distended, no palpable masses, no rebound or guarding. No hepatosplenomegaly GENITOURINARY: MUSCULOSKELETAL: Extremities have no gross deformity NEUROLOGIC:_a/o x 3, GCS 15, normal mentation and speech. Moves all extremities x 4 without motor or sensory defici, normal [id number] testing, normal [id number] testing, no nystagmus PSYCHIATRIC:_normal mood and affect, thought process is clear and linear (Sonya Rodgers) Course Vital Signs 08/20/24 08/20/24 19:49 23:20 Temperature 98.6 F Pulse Rate 87 Respiratory 18 Rate Blood Pressure 97/67 Blood Pressure 92/60 [Right Arm Sitting] Blood Pressure 94/62 [Right Arm Standing] Blood Pressure 86/56 [Right Arm Supine] O2 Sat by Pulse 98 Oximetry EKG Findings - EKG Comments: EKG Findings:: Sinus rhythm, rate 68 bpm ME interval 146 ms QT/QTc 363/380 ms, normal axis, no ST elevations or depressions, no arrhythmia, no delta waves, no Brugada pattern <Sonya Rodgers - Last Filed: 08/21/24 00:24> Medical Decision Making <Jose J Mooney - Last Filed: 08/20/24 20:26> - Lab Data Result diagrams: 08/20/24 22:00 08/20/24 22:00 <Sonya Rodgers - Last Filed: 08/21/24 00:24> - Medical Decision Making I performed the quick note portion of this visit, electronically signed Jose J Mooney PA-C (Jose J Mooney) Was pt. sent in by a medical professional or institution ([facility], [facility], urgent care, hospital, or correction...) When possible be specific @ -[No] Did you speak to anyone other than the patient for history (EMS, parent, family, police, friend...)? What history was obtained from this source @ -[No] Did you review nursing and triage notes (agree or disagree)? Why? @ -[I reviewed nursing and triage notes] Were old charts reviewed (outside hosp., previous admission, EMS record, old EKG, old radiological studies, urgent care reports/EKG's, correction records)? Report findings @ -[Medical records reviewed] patient was here approximately 1 week ago for COVID-19 Differential Diagnosis (chest pain, altered mental status, abdominal pain women, abdominal pain men, vaginal bleeding, weakness, fever, dyspnea, syncope, headache, dizziness, GI bleed, back pain, seizure, CVA, palpatations, mental health, musculoskeletal)? @Differential Dizziness: Benign paroxysmal positional Vertigo, Meniere's disease, otitis media, acoustic neuroma, vertebrobasilar insufficiency, cerebellar stroke, encephalitis, hypovolemic, arrhythmia, coronary artery syndrome, anemia, this is not meant to be an all-inclusive list EKG interpreted by me (3pts min.). @ -[As above] X-rays interpreted by me (1pt min.). No cardiomegaly, consolidations or pleural effusions CT interpreted by me (1pt min.). @ -[None done] U/S interpreted by me (1pt. min.). @ -[None done] What testing was considered but not performed or refused? (CT, X-rays, U/S, labs)? Why? @ -[None] What meds were considered but not given or refused? Why? @ -[None] Did you discuss the management of the patient with other professionals (professionals i.e. , PA, [facility], lab, RT, psych nurse, addiction social worker, surtass analyst, teacher, surveillance dual rate officer, clinical case manager)? Give summary @ -[No] Was smoking cessation discussed for >3mins.? @ -[No] Was critical care preformed (if so, how long)? @ -[No] Were there social determinants of health that impacted care today? How? (Homelessness, low income, unemployed, alcoholism, drug addiction, transportation, low edu. Level, literacy, decrease access to med. care, intermediate, rehab)? @ -[No] Was there de-escalation of care discussed even if they declined (Discuss DNR or withdrawal of care, Hospice)? @ -[No] What co-morbidities impacted this encounter? (DM, HTN, Smoking, COPD, CAD, Cancer, CVA, ARF, Chemo, Hep., AIDS, mental health diagnosis, sleep apnea, morbid obesity)? @ -[None] Was patient admitted / discharged? Hospital course, mention meds given and route, prescriptions, significant lab abnormalities, going to OR and other pertinent info. @-3-kzbg-old female presenting today for dizziness exacerbated with standing and head movements, approximately 1 week after being diagnosed with COVID-19. Additionally requested COVID test while she is here. Patient well- appearing on my assessment in no acute distress. No focal neurologic deficits, no cerebellar signs.Patient's blood pressure is on the lower side with a blood pressure 97/66 MAP of 77, otherwise vital signs within acceptable limits. Will obtain orthostatic vital signs, blood glucose, EKG CBC CMP urinalysis hCG, seen and Tylenol. Patient agreeable with plan of care. Labs and imaging reviewed. Grossly within normal limits. Abnormal values not concerning for acute pathology related to presenting complaint. On reassessment pt endorses imrpvoement of symptoms. Plan for discharge. Patient agreeable plan. We discussed the importance of drinking plenty of fluids and getting plenty of rest over the next few days. In my medical judgment there is currently no evidence of an immediate life- threatening or surgical condition. Discharge is therefore indicated at this time. [Discharge treatment instructions, follow up instructions, and appropriate emergency department return precautions were discussed with the patient and/or medical decision maker. Patient and/or medical decision maker expressed understanding of and agreed with the treatment plan, follow up instructions, and emergency department return precaution. All patient's and/or medical decision maker's questions were answered.] [The patient was advised that a small risk still exists that a serious condition could develop and was therefore instructed to return to the ED for any changes in symptoms, persistent symptoms, inability to obtain proper follow-up or for any further concerns. Patient received verbal and written instructions for this condition.] Undiagnosed new problem with uncertain prognosis? @ -[No] Drug Therapy requiring intensive monitoring for toxicity (Heparin, Nitro, Insulin, Cardizem)? @ -[No] Were any procedures done? @ -[No] Diagnosis/symptom? Dizziness Acute, or Chronic, or Acute on Chronic? @Acute Uncomplicated (without systemic symptoms) or Complicated (systemic symptoms)? @Uncomplicated Side effects of treatment? @ -[No] Exacerbation, Progression, or Severe Exacerbation? @ -[No] Poses a threat to life or bodily function? How? (Chest pain, USA, PA, pneumonia, PE, COPD, DKA, ARF, appy, cholecystitis, CVA, Diverticulitis, Homicidal, Suicidal, threat to staff... and all critical care pts) @ -[No] (Sonya Rodgers) - Lab Data Lab Results 08/20/24 08/20/24 08/20/24 Range/Units 21:50 21:51 22:00 WBC 6.6 (3.8-10.6) k/uL RBC 4.67 (3.80-5.40) m/uL Hgb 14.0 (11.4-16.0) gm/dL Hct 40.2 (34.0-46.0) % MCV 86.1 (80.0-100.0) fL MCH 29.9 (25.0-35.0) pg MCHC 34.7 (31.0-37.0) g/dL RDW 12.9 (11.5-15.5) % Plt Count 215 (150-450) k/uL MPV 8.0 Neutrophils % 55 % Lymphocytes % 36 % Monocytes % 4 % Eosinophils % 2 % Basophils % 1 % Neutrophils # 3.6 (1.3-7.7) k/uL Lymphocytes # 2.4 (1.0-4.8) k/uL Monocytes # 0.3 (0-1.0) k/uL Eosinophils # 0.2 (0-0.7) k/uL Basophils # 0.1 (0-0.2) k/uL Sodium (137-145) mmol/L Potassium (3.5-5.1) mmol/L Chloride (98-107) mmol/L Carbon Dioxide (22-30) mmol/L Anion Gap mmol/L BUN (7-17) mg/dL Creatinine (0.52-1.04) mg/dL Est GFR (CKD-EPI)AfAm (>60 ml/min/1.73 sqM) Est GFR (CKD-EPI)NonAf (>60 ml/min/1.73 sqM) Glucose (74-99) mg/dL POC Glucose (mg/dL) 86 (70-110) mg/dL POC Glu [employer] ID Radford Adiel Calcium (8.4-10.2) mg/dL Total Bilirubin (0.2-1.3) mg/dL AST (14-36) U/L ALT (4-34) U/L Alkaline Phosphatase (38-126) U/L Total Protein (6.3-8.2) g/dL Albumin (3.5-5.0) g/dL HCG, Qual Influenza Type A (PCR) Not Detected (Not Detectd) Influenza Type B (PCR) Not Detected (Not Detectd) RSV (PCR) Not Detected (Not Detectd) SARS-CoV-2 (PCR) Not Detected (Not Detectd) 08/20/24 Range/Units 22:00 WBC (3.8-10.6) k/uL RBC (3.80-5.40) m/uL Hgb (11.4-16.0) gm/dL Hct (34.0-46.0) % MCV (80.0-100.0) fL MCH (25.0-35.0) pg MCHC (31.0-37.0) g/dL RDW (11.5-15.5) % Plt Count (150-450) k/uL MPV Neutrophils % % Lymphocytes % % Monocytes % % Eosinophils % % Basophils % % Neutrophils # (1.3-7.7) k/uL Lymphocytes # (1.0-4.8) k/uL Monocytes # (0-1.0) k/uL Eosinophils # (0-0.7) k/uL Basophils # (0-0.2) k/uL Sodium 138 (137-145) mmol/L Potassium 4.3 (3.5-5.1) mmol/L Chloride 101 (98-107) mmol/L Carbon Dioxide 27 (22-30) mmol/L Anion Gap 10 mmol/L BUN 14 (7-17) mg/dL Creatinine 0.77 (0.52-1.04) mg/dL Est GFR (CKD-EPI)AfAm >90 (>60 ml/min/1.73 sqM) Est GFR (CKD-EPI)NonAf >90 (>60 ml/min/1.73 sqM) Glucose 78 (74-99) mg/dL POC Glucose (mg/dL) (70-110) mg/dL POC Glu [employer] ID Calcium 9.2 (8.4-10.2) mg/dL Total Bilirubin 0.4 (0.2-1.3) mg/dL AST 21 (14-36) U/L ALT 11 (4-34) U/L Alkaline Phosphatase 48 (38-126) U/L Total Protein 6.9 (6.3-8.2) g/dL Albumin 4.3 (3.5-5.0) g/dL HCG, Qual Not Detected Influenza Type A (PCR) (Not Detectd) Influenza Type B (PCR) (Not Detectd) RSV (PCR) (Not Detectd) SARS-CoV-2 (PCR) (Not Detectd) Disposition <Jose J Mooney - Last Filed: 08/20/24 20:26> Is patient prescribed a controlled substance at d/c from ED?: No <Sonya Rodgers - Last Filed: 08/21/24 00:24> Clinical Impression: Dizziness Disposition: HOME SELF-CARE Condition: Good Instructions (If sedation given, give patient instructions): Dizziness (ED) Additional Instructions: Every disease is a spectrum and a small chance still exists that a serious condition could develop, for this reason, please monitor yourself closely for new, changing or worsening symptoms, symptoms that persist beyond another 72 hours, severe headache, changes in vision, numbness or weakness, episodes of passing out, chest pain, fever, inability to tolerate/keep down fluids or your medications, inability to follow up with outpatient providers as instructed and should you experience these symptoms or should you have any further concerns for your wellbeing please return to the ED or call 911 immediately. PLEASE call your primary care physician as soon as possible to arrange / discuss plan for followup appointment. Appointment in the next 1-3 days is strongly encouraged if possible. PLEASE let us know here before you leave if there is anything further we can do to be of any assistance. Take care and feel Better! Prescriptions: Meclizine [Antivert] 25 mg PO TID #20 tab Referrals: Husam Roman MD [Primary Care Provider] - 1-2 days
[2024-08-20 21:53] LABS: Glucose,Whole Blood 86 mg/dL (70-110)
[2024-08-20 22:10] LABS: Basophils # (A) 0.1 k/uL (0-0.2); Basophils % (A) 1 %; Eosinophils # (A) 0.2 k/uL (0-0.7); Eosinophils % (A) 2 %; HCT 40.2 % (34.0-46.0); Lymphocytes # (A) 2.4 k/uL (1.0-4.8); Lymphocytes % (A) 36 %; MCH 29.9 pg (25.0-35.0); MCHC 34.7 g/dL (31.0-37.0); MCV 86.1 fL (80.0-100.0); Monocytes # (A) 0.3 k/uL (0-1.0); Monocytes % (A) 4 %; Neutrophils # (A) 3.6 k/uL (1.3-7.7); Neutrophils % (A) 55 %; Platelet Count 215 k/uL (150-450); RBC 4.67 m/uL (3.80-5.40); RDW 12.9 % (11.5-15.5); WBC 6.6 k/uL (3.8-10.6)
[2024-08-20] MEDS: ACETAMINOPHEN TAB 500 MG TAB PO STA (22:19)
[2024-08-20] MEDS: MECLIZINE 25 MG TAB PO STA (22:19)
[2024-08-20] MEDS: SODIUM CHLORIDE 0.9% 1,000 ML IV ONE (22:20)
[2024-08-20 22:34] LABS: ALT 11 U/L (4-34); AST 21 U/L (14-36); African American GFR (CKD) >90 (>60 ml/min/1.73 sqM); Albumin 4.3 g/dL (3.5-5.0); Alkaline Phosphatase 48 U/L (38-126); Anion Gap 10 mmol/L; Blood Urea Nitrogen 14 mg/dL (7-17); Calcium 9.2 mg/dL (8.4-10.2); Carbon Dioxide 27 mmol/L (22-30); Chloride 101 mmol/L (98-107); Glucose 78 mg/dL (74-99); Non-African American GFR(CKD) >90 (>60 ml/min/1.73 sqM); Potassium 4.3 mmol/L (3.5-5.1); Sodium 138 mmol/L (137-145); Total Bilirubin 0.4 mg/dL (0.2-1.3); Total Protein 6.9 g/dL (6.3-8.2)
[2024-08-20 22:41] LABS: Influenza A Not Detected (Not Detectd); Influenza B Not Detected (Not Detectd); RSV Not Detected (Not Detectd)
[2024-08-20 22:48] LABS: HCG,Qualitative Serum Not Detected
[2024-08-20 23:21] VITALS: BP 86/56
--- NOTE | 2024-08-21 00:07 | XR ---
EXAM: XR Chest, 2 Views CLINICAL HISTORY: ITS.REASON XR Reason: dizziness TECHNIQUE: Frontal and lateral views of the chest. COMPARISON: 06/15/2022 FINDINGS: Lungs: Unremarkable. No consolidation. Pleural space: Unremarkable. No pneumothorax. Heart: Unremarkable. No cardiomegaly. Mediastinum: Unremarkable. Normal mediastinal contour. Bones/joints: Unremarkable. No acute fracture. IMPRESSION: Normal chest x-rays.
[2024-08-21 01:04] LABS: Appearance,Urine Cloudy (Clear); Bacteria,Urine Moderate /hpf; Bilirubin,Urine Negative (Negative); Blood,Urine Negative (Negative); Budding Yeast,Urine Rare /hpf; Color,Urine Colorless; Glucose,Urine (UA) Negative (Negative); Ketones,Urine Negative (Negative); Leukocyte Esterase,Urine Large (Negative); Nitrite,Urine Negative (Negative); PH, Urine 6.5 (5.0-8.0); Protein,Urine Negative (Negative); RBC,Urine <1 /hpf (0-5); Specific Gravity,Urine 1.009 (1.001-1.035); Squamous Epithelial Cell,Urine 2 /hpf (0-4); Urobilinogen,Urine <2.0 mg/dL (<2.0); WBC,Urine 11 /hpf (0-5)
== END 2024-08-21 00:50 | disposition home or self-care (01) ==
LOC: EC 19:33
DX: R42 Dizziness and giddiness (principal); Z11.52 Encounter for screening for COVID-19
CPT/HCPCS: 36415; 71046; 80053; 81001; 84703; 85025; 87636; 93005; 96360; 99285

== ENCOUNTER 2024-10-20 05:33 | Emergency (ER) | payer SELFPAY ==
--- NOTE | 2024-10-20 06:18 | ED ---
Dizziness HPI - General Chief Complaint: Dizziness Stated Complaint: Dizziness Time Seen by Provider: 10/20/24 06:16 Source: patient, family, EMS, RN notes reviewed, old records reviewed Mode of arrival: EMS Limitations: no limitations - History of Present Illness Initial Comments: 23-year-old female presented to the ER for evaluation of dizziness. Patient states around midnight she took 20 mL of Delsym due to a cough. She states around 40 minutes after consumption she started to feel dizzy like she was in "a dream". She states her whole body is "tingly". Patient denies any syncopal episodes, chest, shortness of breath fevers or chills. Patient states she has been dizzy in the past for which PCP contributed this to cerumen impaction this is since improved. She denies any abdominal pain, nausea, vomiting, constipation/diarrhea, urinary complaints or peripheral edema. Patient has no significant past medical history. - Related Data Home Medications Medication Instructions Recorded Confirmed Ascorbic Acid [Vitamin C] 500 mg PO DAILY 08/06/21 08/06/21 Calcium Carbonate [Calcium] 600 mg PO DAILY 08/06/21 08/06/21 Cholecalciferol [Vitamin D3 (25 25 mcg PO DAILY 08/06/21 08/06/21 Mcg = 1000 Iu)] Previous Rx's Medication Instructions Recorded Azithromycin [Zithromax Z Pack] 1 tab PO DIRECTED #6 tab 06/15/22 Amoxicillin 875 mg PO Q12HR 10 Days #20 tablet 01/28/23 Meclizine [Antivert] 25 mg PO TID PRN 7 Days #21 tab 01/28/23 Meclizine [Antivert] 25 mg PO TID #20 tab 08/21/24 Allergies Allergy/AdvReac Type Severity Reaction Status Date / Time No Known Allergies Allergy Verified 10/20/24 05:39 Review of Systems ROS Statement: Those systems with pertinent positive or pertinent negative responses have been documented in the HPI. ROS Other: All systems not noted in ROS Statement are negative. Past Medical History Past Medical History: No Reported History History of Any Multi-Drug Resistant Organisms: None Reported Past Surgical History: No Surgical Hx Reported Past Psychological History: No Psychological Hx Reported Smoking Status: Never smoker Past Alcohol Use History: None Reported Past Drug Use History: None Reported General Exam Limitations: no limitations General appearance: alert, in no apparent distress ENT exam: Present: normal exam, normal oropharynx, mucous membranes moist, TM's normal bilaterally Respiratory exam: Present: normal lung sounds bilaterally. Absent: respiratory distress, wheezes, rales, rhonchi, stridor Cardiovascular Exam: Present: regular rate, normal rhythm, normal heart sounds. Absent: systolic murmur, diastolic murmur, rubs, gallop, clicks GI/Abdominal exam: Present: soft, normal bowel sounds. Absent: distended, tenderness, guarding, rebound, rigid Extremities exam: Present: normal inspection, full ROM, normal capillary refill. Absent: tenderness, pedal edema, joint swelling, calf tenderness Neurological exam: Present: alert, oriented X3, CN II-XII intact, normal gait Skin exam: Present: warm, dry, intact, normal color. Absent: rash Course Vital Signs 10/20/24 10/20/24 10/20/24 05:35 06:57 08:54 Temperature 98.5 F 98.4 F Pulse Rate 73 64 Respiratory 18 18 16 Rate Blood Pressure 116/71 98/62 Blood Pressure 103/76 [Right Arm Sitting] Blood Pressure 106/77 [Right Arm Standing] Blood Pressure 101/72 [Right Arm Supine] O2 Sat by Pulse 99 95 99 Oximetry EKG Findings - EKG Comments: EKG Findings:: EKG taken at 5: 55 showing a sinus rhythm. Ventricular rate 66, MA interval 166, QRS duration 75, QT/QTc 354/368 Medical Decision Making - Medical Decision Making Was pt. sent in by a medical professional or institution (MAHNAZ Rubalcava, BOWLING BALL PATCHER, urgent care, hospital, or detention...) When possible be specific @ -No Did you speak to anyone other than the patient for history (EMS, parent, family, police, friend...)? What history was obtained from this source @ -No Did you review nursing and triage notes (agree or disagree)? Why? @ -I reviewed and agree with nursing and triage notes Were old charts reviewed (outside hosp., previous admission, EMS record, old EKG, old radiological studies, urgent care reports/EKG's, detention records)? Report findings @ -No old charts were reviewed Differential Diagnosis (chest pain, altered mental status, abdominal pain women, abdominal pain men, vaginal bleeding, weakness, fever, dyspnea, syncope, headache, dizziness, GI bleed, back pain, seizure, CVA, palpatations, mental health, musculoskeletal)? @ -Differential Dizziness:Benign paroxysmal positional Vertigo, Meniere's disease, otitis media, acoustic neuroma, vertebrobasilar insufficiency, cerebellar stroke, encephalitis, hypovolemic, arrhythmia, coronary artery syndrome, anemia, this is not meant to be an all-inclusive list EKG interpreted by me (3pts min.). @ -As above X-rays interpreted by me (1pt min.). @ -None done CT interpreted by me (1pt min.). @ -None done U/S interpreted by me (1pt. min.). @ -None done What testing was considered but not performed or refused? (CT, X-rays, U/S, labs)? Why? @ -None What meds were considered but not given or refused? Why? @ -Antibiotics considered for possible UTI. As patient has no current UTI symptoms, urine will be sent for culture prior to antibiotics initiation. Patient agreeable. Did you discuss the management of the patient with other professionals (professionals i.e. , PA, BOWLING BALL PATCHER, lab, RT, psych nurse, social service agency director, pearl digger, teacher, border patrol officer, case making machine operator)? Give summary @ -No Was smoking cessation discussed for >3mins.? @ -No Was critical care preformed (if so, how long)? @ -No Were there social determinants of health that impacted care today? How? (Homelessness, low income, unemployed, alcoholism, drug addiction, transportation, low edu. Level, literacy, decrease access to med. care, halfway, rehab)? @ -No Was there de-escalation of care discussed even if they declined (Discuss DNR or withdrawal of care, Hospice)? DNR status @ -No What co-morbidities impacted this encounter? (DM, HTN, Smoking, COPD, CAD, Cancer, CVA, ARF, Chemo, Hep., AIDS, mental health diagnosis, sleep apnea, morbid obesity)? @ -None Was patient admitted / discharged? Hospital course, mention meds given and route, prescriptions, significant lab abnormalities, going to OR and other pertinent info. @ -Discharge. 23-year-old female presented the ER for evaluation of dizziness after taking Delsym. Upon rooming, history and physical exam completed. Vitals within acceptable limits. Patient had no signs of acute distress nontoxic-appearing. Laboratory studies obtained unremarkable. Urinalysis occasional bacteria and 37 WBCs this will be sent for culture prior to antibiotic initiation. Orthostatic vital signs with appropriate change. Patient given IV fluid bolus and meclizine for symptom control. Upon reevaluation, patient resting comfortably in exam room on cell phone. No signs of acute distress. Results discussed with patient, all questions answered. Advised close follow-up with PCP. Strict return parameters discussed. Patient discharged stable condition. Patient verbally expressed understanding agree with care plan. Case discussed with ED attending of Dr. Contreras Undiagnosed new problem with uncertain prognosis? @ -No Drug Therapy requiring intensive monitoring for toxicity (Heparin, Nitro, Insuli n, Cardizem)? @ -No Were any procedures done? @ -No Diagnosis/symptom? @ -Dizziness Acute, or Chronic, or Acute on Chronic? @ -Acute Uncomplicated (without systemic symptoms) or Complicated (systemic symptoms)? @ - Uncomplicated Side effects of treatment? @ -No Exacerbation, Progression, or Severe Exacerbation? @ -No Poses a threat to life or bodily function? How? (Chest pain, [place], [place], pneumonia, PE, COPD, DKA, ARF, appy, cholecystitis, CVA, Diverticulitis, Homicidal, Suicidal, threat to staff... and all critical care pts) @ -Unlikely - Lab Data Result diagrams: 10/20/24 06:25 10/20/24 06:25 Lab Results 10/20/24 10/20/24 10/20/24 Range/Units 06:25 06:25 07:37 WBC 6.4 (3.8-10.6) k/uL RBC 4.74 (3.80-5.40) m/uL Hgb 13.6 (11.4-16.0) gm/dL Hct 41.6 (34.0-46.0) % MCV 87.6 (80.0-100.0) fL MCH 28.7 (25.0-35.0) pg MCHC 32.7 (31.0-37.0) g/dL RDW 12.6 (11.5-15.5) % Plt Count 214 (150-450) k/uL MPV 8.6 Neutrophils % 57 % Lymphocytes % 33 % Monocytes % 4 % Eosinophils % 3 % Basophils % 1 % Neutrophils # 3.7 (1.3-7.7) k/uL Lymphocytes # 2.1 (1.0-4.8) k/uL Monocytes # 0.3 (0-1.0) k/uL Eosinophils # 0.2 (0-0.7) k/uL Basophils # 0.1 (0-0.2) k/uL Sodium 137 (137-145) mmol/L Potassium 4.2 (3.5-5.1) mmol/L Chloride 99 (98-107) mmol/L Carbon Dioxide 29 (22-30) mmol/L Anion Gap 9 mmol/L BUN 14 (7-17) mg/dL Creatinine 0.66 (0.52-1.04) mg/dL Est GFR (CKD-EPI)AfAm >90 (>60 ml/min/1.73 sqM) Est GFR (CKD-EPI)NonAf >90 (>60 ml/min/1.73 sqM) Glucose 92 (74-99) mg/dL Calcium 9.3 (8.4-10.2) mg/dL Total Bilirubin 0.5 (0.2-1.3) mg/dL AST 21 (14-36) U/L ALT 12 (4-34) U/L Alkaline Phosphatase 50 (38-126) U/L Total Protein 7.2 (6.3-8.2) g/dL Albumin 4.4 (3.5-5.0) g/dL Urine Color Colorless Urine Appearance Clear (Clear) Urine pH 6.5 (5.0-8.0) Ur Specific [place] 1.006 (1.001-1.035) Urine Protein Negative (Negative) Urine Glucose (UA) Negative (Negative) Urine Ketones Negative (Negative) Urine Blood Small H (Negative) Urine Nitrite Negative (Negative) Urine Bilirubin Negative (Negative) Urine Urobilinogen <2.0 (<2.0) mg/dL Ur Leukocyte Esterase Moderate H (Negative) Urine RBC <1 (0-5) /hpf Urine WBC 37 H (0-5) /hpf Ur Squamous Epith Cells <1 (0-4) /hpf Urine Bacteria Occasional H (None) /hpf Urine Mucus Rare H (None) /hpf Urine HCG, Qual (Not Detectd) 10/20/24 Range/Units 07:37 WBC (3.8-10.6) k/uL RBC (3.80-5.40) m/uL Hgb (11.4-16.0) gm/dL Hct (34.0-46.0) % MCV (80.0-100.0) fL MCH (25.0-35.0) pg MCHC (31.0-37.0) g/dL RDW (11.5-15.5) % Plt Count (150-450) k/uL MPV Neutrophils % % Lymphocytes % % Monocytes % % Eosinophils % % Basophils % % Neutrophils # (1.3-7.7) k/uL Lymphocytes # (1.0-4.8) k/uL Monocytes # (0-1.0) k/uL Eosinophils # (0-0.7) k/uL Basophils # (0-0.2) k/uL Sodium (137-145) mmol/L Potassium (3.5-5.1) mmol/L Chloride (98-107) mmol/L Carbon Dioxide (22-30) mmol/L Anion Gap mmol/L BUN (7-17) mg/dL Creatinine (0.52-1.04) mg/dL Est GFR (CKD-EPI)AfAm (>60 ml/min/1.73 sqM) Est GFR (CKD-EPI)NonAf (>60 ml/min/1.73 sqM) Glucose (74-99) mg/dL Calcium (8.4-10.2) mg/dL Total Bilirubin (0.2-1.3) mg/dL AST (14-36) U/L ALT (4-34) U/L Alkaline Phosphatase (38-126) U/L Total Protein (6.3-8.2) g/dL Albumin (3.5-5.0) g/dL Urine Color Urine Appearance (Clear) Urine pH (5.0-8.0) Ur Specific [place] (1.001-1.035) Urine Protein (Negative) Urine Glucose (UA) (Negative) Urine Ketones (Negative) Urine Blood (Negative) Urine Nitrite (Negative) Urine Bilirubin (Negative) Urine Urobilinogen (<2.0) mg/dL Ur Leukocyte Esterase (Negative) Urine RBC (0-5) /hpf Urine WBC (0-5) /hpf Ur Squamous Epith Cells (0-4) /hpf Urine Bacteria (None) /hpf Urine Mucus (None) /hpf Urine HCG, Qual Not Detected (Not Detectd) Disposition Clinical Impression: Dizziness Disposition: HOME SELF-CARE Condition: Stable Additional Instructions: Follow-up with PCP. Return to the ER for any new or worsening concerns Is patient prescribed a controlled substance at d/c from ED?: No Referrals: Husam Roman MD [Primary Care Provider] - 1-2 days Time of Disposition: 08:26
[2024-10-20] MEDS: MECLIZINE 12.5 MG TAB PO STA (06:24)
[2024-10-20] MEDS: SODIUM CHLORIDE 0.9% 1,000 ML IV ONE (06:26)
[2024-10-20 06:46] LABS: Basophils # (A) 0.1 k/uL (0-0.2); Basophils % (A) 1 %; Eosinophils # (A) 0.2 k/uL (0-0.7); Eosinophils % (A) 3 %; HCT 41.6 % (34.0-46.0); HGB 13.6 gm/dL (11.4-16.0); Lymphocytes # (A) 2.1 k/uL (1.0-4.8); Lymphocytes % (A) 33 %; MCH 28.7 pg (25.0-35.0); MCHC 32.7 g/dL (31.0-37.0); MCV 87.6 fL (80.0-100.0); Mean Platelet Volume 8.6; Monocytes # (A) 0.3 k/uL (0-1.0); Monocytes % (A) 4 %; Neutrophils # (A) 3.7 k/uL (1.3-7.7); Neutrophils % (A) 57 %; Platelet Count 214 k/uL (150-450); RBC 4.74 m/uL (3.80-5.40); RDW 12.6 % (11.5-15.5); WBC 6.4 k/uL (3.8-10.6)
[2024-10-20 06:56] LABS: ALT 12 U/L (4-34); AST 21 U/L (14-36); African American GFR (CKD) >90 (>60 ml/min/1.73 sqM); Albumin 4.4 g/dL (3.5-5.0); Alkaline Phosphatase 50 U/L (38-126); Anion Gap 9 mmol/L; Blood Urea Nitrogen 14 mg/dL (7-17); Calcium 9.3 mg/dL (8.4-10.2); Carbon Dioxide 29 mmol/L (22-30); Chloride 99 mmol/L (98-107); Glucose 92 mg/dL (74-99); Non-African American GFR(CKD) >90 (>60 ml/min/1.73 sqM); Potassium 4.2 mmol/L (3.5-5.1); Sodium 137 mmol/L (137-145); Total Bilirubin 0.5 mg/dL (0.2-1.3); Total Protein 7.2 g/dL (6.3-8.2)
[2024-10-20 08:11] LABS: Appearance,Urine Clear (Clear); Bacteria,Urine Occasional /hpf; Bilirubin,Urine Negative (Negative); Blood,Urine Small (Negative); Color,Urine Colorless; Glucose,Urine (UA) Negative (Negative); Ketones,Urine Negative (Negative); Leukocyte Esterase,Urine Moderate (Negative); Mucus,Urine Rare /hpf; Nitrite,Urine Negative (Negative); PH, Urine 6.5 (5.0-8.0); Protein,Urine Negative (Negative); RBC,Urine <1 /hpf (0-5); Specific Gravity,Urine 1.006 (1.001-1.035); Squamous Epithelial Cell,Urine <1 /hpf (0-4); Urobilinogen,Urine <2.0 mg/dL (<2.0); WBC,Urine 37 /hpf (0-5)
[2024-10-20] MEDS: ACETAMINOPHEN TAB 325 MG TAB PO STA (08:22)
[2024-10-20] MEDS: IBUPROFEN 400 MG TAB PO STA (08:23)
[2024-10-20 08:57] VITALS: BP 98/62; PULSE 64; RESP 16; TEMP 98.4
== END 2024-10-20 08:57 | disposition home or self-care (01) ==
LOC: EC 05:33
DX: R42 Dizziness and giddiness (principal); B96.89 Other specified bacterial agents as the cause of diseases classified elsewhere
CPT/HCPCS: 36415; 80053; 81001; 81025; 85025; 87077; 87086; 87186; 93005; 96360; 99284

== ENCOUNTER 2024-11-24 23:26 | Emergency (ER) | payer OTHER ==
[2024-11-24 23:40] VITALS: BP 116/77; PULSE 83; RESP 18; TEMP 98.3
--- NOTE | 2024-11-25 01:06 | ED ---
Chest Pain HPI - General Chief Complaint: Chest Pain Stated Complaint: Chest pain Time Seen by Provider: 11/25/24 00:02 Source: patient, RN notes reviewed Mode of arrival: ambulatory Limitations: no limitations - History of Present Illness Initial Comments: 24-year-old female presenting for chest pain x 1 week with associated shortness of breath and lightheadedness. States she has been experiencing this pain intermittently for approximately 2 years however reports symptoms have gotten worse over the past week. Describes a sharp pain in the center of the chest worse with inspiration. Reports her whole body feels "tingly". Denies fever, cough, nasal congestion, sore throat. Otherwise healthy, no other health conditions. - Related Data Home Medications Medication Instructions Recorded Confirmed Ascorbic Acid [Vitamin C] 500 mg PO DAILY 08/06/21 08/06/21 Calcium Carbonate [Calcium] 600 mg PO DAILY 08/06/21 08/06/21 Cholecalciferol [Vitamin D3 (25 25 mcg PO DAILY 08/06/21 08/06/21 Mcg = 1000 Iu)] Previous Rx's Medication Instructions Recorded Azithromycin [Zithromax Z Pack] 1 tab PO DIRECTED #6 tab 06/15/22 Amoxicillin 875 mg PO Q12HR 10 Days #20 tablet 01/28/23 Meclizine [Antivert] 25 mg PO TID PRN 7 Days #21 tab 01/28/23 Meclizine [Antivert] 25 mg PO TID #20 tab 08/21/24 Allergies Allergy/AdvReac Type Severity Reaction Status Date / Time No Known Allergies Allergy Verified 11/24/24 23:40 Review of Systems ROS Statement: Those systems with pertinent positive or pertinent negative responses have been documented in the HPI. ROS Other: All systems not noted in ROS Statement are negative. EKG Findings - EKG Results: EKG: interpreted by ERMD (EKG reveals normal sinus rhythm with no acute ST changes. Ventricular rate 80 bpm, parable 158, QRS duration 85, QT/QTc 327/362) Past Medical History Past Medical History: No Reported History History of Any Multi-Drug Resistant Organisms: None Reported Past Surgical History: No Surgical Hx Reported Past Psychological History: No Psychological Hx Reported Smoking Status: Never smoker Past Alcohol Use History: None Reported Past Drug Use History: None Reported General Exam Limitations: no limitations General appearance: alert, in no apparent distress Head exam: Present: atraumatic, normocephalic, normal inspection Eye exam: Present: normal appearance, PERRL, EOMI. Absent: scleral icterus, conjunctival injection, periorbital swelling ENT exam: Present: normal exam, normal oropharynx, mucous membranes moist Neck exam: Present: normal inspection. Absent: tenderness, meningismus, lymphadenopathy Respiratory exam: Present: normal lung sounds bilaterally, chest wall tenderness (Reproducible chest wall tenderness). Absent: respiratory distress, wheezes, rales, rhonchi, stridor, accessory muscle use Cardiovascular Exam: Present: regular rate, normal rhythm, normal heart sounds. Absent: systolic murmur, diastolic murmur, rubs, gallop, clicks GI/Abdominal exam: Present: soft, normal bowel sounds. Absent: distended, tenderness, guarding, rebound, rigid Neurological exam: Present: alert, oriented X3 Psychiatric exam: Present: normal affect, normal mood Skin exam: Present: warm, dry, intact, normal color. Absent: rash Course Vital Signs 11/24/24 23:37 Temperature 98.3 F Pulse Rate 83 Respiratory 18 Rate Blood Pressure 116/77 O2 Sat by Pulse 100 Oximetry Chest Pain MDM - MDM Was pt. sent in by a medical professional or institution (, PA, FIRE EXTINGUISHER INSTALLER, urgent care, hospital, or [facility]...) When possible be specific @ -No Did you speak to anyone other than the patient for history (EMS, parent, family, police, friend...)? What history was obtained from this source @ -No Did you review nursing and triage notes (agree or disagree)? Why? @ -I reviewed and agree with nursing and triage notes Were old charts reviewed (outside hosp., previous admission, EMS record, old EKG, old radiological studies, urgent care reports/EKG's, [facility] records)? Report findings @ -No old charts were reviewed Differential Diagnosis (chest pain, altered mental status, abdominal pain women, abdominal pain men, vaginal bleeding, weakness, fever, dyspnea, syncope, headache, dizziness, GI bleed, back pain, seizure, CVA, palpatations, mental health, musculoskeletal)? @ -Differential Chest Pain: Stable Angina, Unstable Angina, STEMI, NSTEMI Aortic Dissection, Pneumothorax, Musculoskeletal, Esophageal Spasm GERD, Cholecystitis, Pancreatitis, Zoster, this is not meant to be an all-inclusive list. EKG interpreted by me (3pts min.). @ -As above X-rays interpreted by me (1pt min.). @ -Chest x-ray reveals no acute process CT interpreted by me (1pt min.). @ -None done U/S interpreted by me (1pt. min.). @ -None done What testing was considered but not performed or refused? (CT, X-rays, U/S, labs)? Why? @ -ordered Cepheid and urinalysis/hCG however patient refuses What meds were considered but not given or refused? Why? @ -None Did you discuss the management of the patient with other professionals (professionals i.e. Dr., PA, FIRE EXTINGUISHER INSTALLER, lab, RT, psych nurse, social service coordinator, director of archives, teacher, maritime officer, medical case manager)? Give summary @ -No Was smoking cessation discussed for >3mins.? @ -No Was critical care preformed (if so, how long)? @ -No Were there social determinants of health that impacted care today? How? (Homelessness, low income, unemployed, alcoholism, drug addiction, transportation, low edu. Level, literacy, decrease access to med. care, [facility], rehab)? @ -No Was there de-escalation of care discussed even if they declined (Discuss DNR or withdrawal of care, Hospice)? DNR status @ -No What co-morbidities impacted this encounter? (DM, HTN, Smoking, COPD, CAD, Cancer, CVA, ARF, Chemo, Hep., AIDS, mental health diagnosis, sleep apnea, morbid obesity)? @ -None Was patient admitted / discharged? Hospital course, mention meds given and route, prescriptions, significant lab abnormalities, going to OR and other pertinent info. @ -Discharge. 24-year-old female presenting for chest pain x 1 week with associated shortness of breath. Vital signs within acceptable limits. Patient is well-appearing, no acute distress. No sign of respiratory distress. Chest pain is reproducible on examination. Patient was provided with IV fluids, Zofran, and Toradol. EKG reveals normal sinus rhythm with no acute ST changes. Chest x-ray reveals no acute process. Lab work largely unremarkable. D-dimer unremarkable, troponin undetectable. Patient declines Cepheid/urinalysis/hcg. Upon reevaluation, patient is resting comfortably in no acute distress. Repo I do not identify emergent etiology causing symptoms today. Appropriate return precautions and follow-up care with PCP discussed. Case was discussed with my ED attending Dr. Pedraza. Undiagnosed new problem with uncertain prognosis? @ -No Drug Therapy requiring intensive monitoring for toxicity (Heparin, Nitro, Insuli n, Cardizem)? @ -No Were any procedures done? @ -No Diagnosis/symptom? @ -Chest pain Acute, or Chronic, or Acute on Chronic? @ -Acute Uncomplicated (without systemic symptoms) or Complicated (systemic symptoms)? @ -Uncomplicated Side effects of treatment? @ -No Exacerbation, Progression, or Severe Exacerbation? @ -No Poses a threat to life or bodily function? How? (Chest pain, [place], [place], pneumonia, PE, COPD, DKA, ARF, appy, cholecystitis, CVA, Diverticulitis, Homicidal, Suicidal, threat to staff... and all critical care pts) @ -Not at this time Disposition Clinical Impression: Chest pain Disposition: HOME SELF-CARE Condition: Stable Instructions (If sedation given, give patient instructions): Chest Pain (ED) Additional Instructions: Follow-up with your PCP for further workup. Please return to the Emergency Department if symptoms worsen or any other concerns. Is patient prescribed a controlled substance at d/c from ED?: No Referrals: Husam Roman MD [Primary Care Provider] - 1-2 days Time of Disposition: 03:12
[2024-11-25 01:40] LABS: Basophils # (A) 0.03 10*3/uL (0.00-0.10); Basophils % (A) 0.4 %; Eosinophils # (A) 0.09 10*3/uL (0.04-0.35); Eosinophils % (A) 1.3 %; HCT 40.2 % (37.2-46.3); Lymphocytes % (A) 36.9 %; MCH 29.7 pg (27.0-32.0); MCHC 34.8 g/dL (32.0-37.0); MCV 85.2 fL (80.0-97.0); Mean Platelet Volume 11.6 fL (9.5-12.2); Monocytes # (A) 0.54 10*3/uL (0.20-1.00); Neutrophils % (A) 53.1 %; Platelet Count 184 10*3/uL (140-440); RBC 4.72 10*6/uL (4.10-5.20); RDW 12.4 % (11.5-14.5); WBC 6.78 10*3/uL (4.50-10.00)
[2024-11-25] MEDS: ONDANSETRON 4 MG/2 ML VIAL IVP STA (01:42)
[2024-11-25] MEDS: KETOROLAC 15 MG/ML 1 ML VIAL IVP STA (01:42)
[2024-11-25] MEDS: SODIUM CHLORIDE 0.9% 1,000 ML IV STA (01:43)
[2024-11-25 02:06] LABS: ALT 12 U/L (4-34); AST 22 U/L (14-36); African American GFR (CKD) >90 (>60 ml/min/1.73 sqM); Albumin 4.3 g/dL (3.5-5.0); Alkaline Phosphatase 40 U/L (38-126); Anion Gap 9 mmol/L; Blood Urea Nitrogen 10 mg/dL (7-17); Calcium 9.6 mg/dL (8.4-10.2); Carbon Dioxide 26 mmol/L (22-30); Chloride 101 mmol/L (98-107); Glucose 83 mg/dL (74-99); Non-African American GFR(CKD) >90 (>60 ml/min/1.73 sqM); Potassium 3.7 mmol/L (3.5-5.1); Sodium 136 mmol/L (137-145); Total Bilirubin 0.5 mg/dL (0.2-1.3); Total Protein 6.8 g/dL (6.3-8.2)
--- NOTE | 2024-11-25 02:47 | XR ---
EXAM: XR Chest, 2 Views CLINICAL HISTORY: ITS.REASON XR Reason: chest pain/shortness of breath TECHNIQUE: Frontal and lateral views of the chest. COMPARISON: No relevant prior studies available. FINDINGS: Lungs: No consolidation or mass. Pleural space: No effusion. Heart: No cardiomegaly. Bones/joints: No acute findings. IMPRESSION: No acute cardiopulmonary process.
== END 2024-11-25 03:19 | disposition home or self-care (01) ==
LOC: EC 23:26
DX: R07.89 Other chest pain (principal)
CPT/HCPCS: 36415; 93005; 85379; 80053; 84484; 85025; 71046; 99285; 96374; 96375; 96361; J2405; J1885